=== PATIENT | female | born 1950 | race Caucasian/White ===

== ENCOUNTER 2019-10-16 17:56 | Emergency (ER) | payer MEDICARE, OTHER ==
[~2019-10-16] VITALS: Ht 170.2 cm; Wt 97.7 kg
[~2019-10-16 17:56] MED LIST: ATEN-169 PO; ATOR20TA66 PO; CELE-193 PO; DABI150C PO; DARI15TA PO; DOCU-28 PO; LACT10SO74 PO; OMEP-84 PO; XAL0.005OS OP
[2019-10-16 19:14] VITALS: BP 112/62
== END 2019-10-16 19:15 | disposition home or self-care (01) ==
LOC: ER 17:57
DX: S93.402A Sprain of unspecified ligament of left ankle, initial encounter (principal); S70.02XA Contusion of left hip, initial encounter; S80.02XA Contusion of left knee, initial encounter; I48.91 Unspecified atrial fibrillation; I25.10 Atherosclerotic heart disease of native coronary artery without angina pectoris; E78.00 Pure hypercholesterolemia, unspecified; I10 Essential (primary) hypertension; K21.9 Gastro-esophageal reflux disease without esophagitis; Z79.01 Long term (current) use of anticoagulants; Z90.49 Acquired absence of other specified parts of digestive tract; Z90.710 Acquired absence of both cervix and uterus; Z88.8 Allergy status to other drugs, medicaments and biological substances; Z88.2 Allergy status to sulfonamides; Z79.899 Other long term (current) drug therapy; W18.09XA Striking against other object with subsequent fall, initial encounter; Y93.01 Activity, walking, marching and hiking; Y92.89 Other specified places as the place of occurrence of the external cause; Y99.9 Unspecified external cause status
CPT/HCPCS: 73502; 73564; 73610; 99284

== ENCOUNTER 2022-10-16 12:54 | Emergency (ER) | payer MEDICARE, OTHER ==
[~2022-10-16] VITALS: Ht 167.6 cm; Wt 100.0 kg
[2022-10-16 13:15] VITALS: BP 121/84
[2022-10-16] MEDS ORDERED: dexamethasone 4mg tablet PO ONE (17:55)
[2022-10-16] MEDS ORDERED: DEXAMETHASONE 6 MG TABLET PO ONE (18:55)
[2022-10-16 19:02] LABS: BASOPHILS % (AUTO) 0.3 % (0-1); EOSINOPHILS # (AUTO) 0.1 X10'3 (0-0.9); EOSINOPHILS % (AUTO) 0.9 % (0-6); HEMATOCRIT 42.8 % (35.0-45.0); HEMOGLOBIN 14.1 g/dl (12.0-16.0); LYMPHOCYTES # (AUTO) 2.3 X10'3 (1.1-4.8); LYMPHOCYTES % (AUTO) 25.8 % (21-51); MEAN CORPUSCULAR HEMOGLOBIN 30.4 PG (27.0-31.0); MEAN CORPUSCULAR HGB CONC 32.9 g/dL (33.0-36.5); MEAN CORPUSCULAR VOLUME 92.3 FL (78-98); MEAN PLATELET VOLUME 7.6 FL (7.4-10.4); MONOCYTES # (AUTO) 0.8 X10'3 (0-0.9); MONOCYTES % (AUTO) 8.4 % (2-12); NEUTROPHILS # (AUTO) 5.9 X10'3 (1.8-7.7); NEUTROPHILS % (AUTO) 64.6 % (42-75); PLATELET COUNT 172 X10'3 (140-440); RED BLOOD COUNT 4.64 X10'6 (4.20-5.60); WHITE BLOOD COUNT 9.1 X10'3 (4.5-11.0)
[2022-10-16 19:08] LABS: ALANINE AMINOTRANSFERASE 16 U/L (12-78); ALBUMIN 3.8 G/DL (3.4-5.0); ALKALINE PHOSPHATASE 133 IU/L (46-116); ANION GAP 8 (8-16); ASPARTATE AMINO TRANSFERASE 17 U/L (10-37); BLOOD UREA NITROGEN 12 MG/DL (7-18); BUN/CREATININE RATIO 18.2 (6.6-38.0); CALCIUM 10.2 MG/DL (8.5-10.1); CHLORIDE 103 MMOL/L (99-107); CREATININE 0.66 MG/DL (0.40-0.90); GLUCOSE 116 MG/DL (70-104); POTASSIUM 4.1 MMOL/L (3.5-5.1); SODIUM 143 MMOL/L (135-145); TOTAL CARBON DIOXIDE 32.2 MMOL/L (24-32); TOTAL PROTEIN 7.7 G/DL (6.4-8.2); eGFR 88 ML/MIN
[2022-10-16 19:51] LABS: CLARITY,URINE CLOUDY (Clear); COLOR,URINE YELLOW (Yellow); GLUCOSE, URINE NEGATIVE (Neg); KETONES,URINE NEGATIVE (Neg); LEUKOCYTE ESTERASE ,URINE TRACE (Neg); NITRITES, URINE POSITIVE (Neg); OCCULT BLOOD,URINE NEGATIVE (Neg); PH,URINE 6.5 (4.8-8.0); PROTEIN,URINE NEGATIVE (Neg)
[2022-10-16 19:54] LABS: UA COLLECTION TYPE CLN CATCH MIDSTREAM
[2022-10-16 20:01] LABS: COARSE GRANULAR CAST 0-3 /LPF (NEGATIVE); SQUAMOUS EPITHELIAL CELL,UR MODERATE /LPF (FEW)
[2022-10-16 20:02] LABS: BACTERIA,URINE 4+ /HPF (Neg); WBC CLUMPS,URINE FEW /HPF (NEGATIVE); WBC,URINE 30-50 /HPF (0-4)
[2022-10-16] MEDS ORDERED: DEXA6TAB PO (21:23)
[2022-10-16] MEDS ORDERED: BUDE180A INH (21:23)
[2022-10-16] MEDS ORDERED: CEPH-585 PO (21:53)
[2022-10-16] MEDS ORDERED: cephalexin 250mg capsule PO ONE (21:55)
== END 2022-10-16 22:08 | disposition home or self-care (01) ==
LOC: ER 12:54
DX: U07.1 COVID-19 (principal); N39.0 Urinary tract infection, site not specified; I25.10 Atherosclerotic heart disease of native coronary artery without angina pectoris; E78.00 Pure hypercholesterolemia, unspecified; I10 Essential (primary) hypertension; K21.9 Gastro-esophageal reflux disease without esophagitis; I48.91 Unspecified atrial fibrillation; Z90.49 Acquired absence of other specified parts of digestive tract; Z90.710 Acquired absence of both cervix and uterus; Z88.2 Allergy status to sulfonamides; Z88.8 Allergy status to other drugs, medicaments and biological substances; Z88.7 Allergy status to serum and vaccine; Z79.899 Other long term (current) drug therapy
CPT/HCPCS: 36415; 71045; 80053; 81001; 85025; 87077; 87088; 87186; 99284

== ENCOUNTER 2022-10-22 13:13 | Emergency (ER) | payer MEDICARE, OTHER ==
[~2022-10-22] VITALS: Ht 167.6 cm; Wt 96.4 kg
[~2022-10-22 13:13] MED LIST changes: +BUDE180A INH; +CEPH-585 PO; +DEXA6TAB PO
[2022-10-22 17:35] VITALS: BP 137/79
[2022-10-22 17:56] LABS: BASOPHILS % (AUTO) 0.3 % (0-1); EOSINOPHILS % (AUTO) 0 % (0-6); HEMATOCRIT 40.5 % (35.0-45.0); HEMOGLOBIN 13.1 g/dl (12.0-16.0); LYMPHOCYTES # (AUTO) 0.9 X10'3 (1.1-4.8); LYMPHOCYTES % (AUTO) 11.9 % (21-51); MEAN CORPUSCULAR HEMOGLOBIN 29.6 PG (27.0-31.0); MEAN CORPUSCULAR HGB CONC 32.4 g/dL (33.0-36.5); MEAN CORPUSCULAR VOLUME 91.3 FL (78-98); MEAN PLATELET VOLUME 7.6 FL (7.4-10.4); MONOCYTES # (AUTO) 0.1 X10'3 (0-0.9); NEUTROPHILS # (AUTO) 6.6 X10'3 (1.8-7.7); NEUTROPHILS % (AUTO) 86.8 % (42-75); PLATELET COUNT 212 X10'3 (140-440); RED BLOOD COUNT 4.44 X10'6 (4.20-5.60); RED CELL DISTRIBUTION WIDTH 14.5 % (11.5-14.5); WHITE BLOOD COUNT 7.7 X10'3 (4.5-11.0)
[2022-10-22 17:59] LABS: D-DIMER < 0.19 MG/L FEU (0-0.50)
[2022-10-22 18:01] LABS: ALANINE AMINOTRANSFERASE 22 U/L (12-78); ALBUMIN 3.3 G/DL (3.4-5.0); ALBUMIN/GLOBULIN RATIO 0.9 (1.1-1.5); ALKALINE PHOSPHATASE 106 IU/L (46-116); ANION GAP 2 (8-16); ASPARTATE AMINO TRANSFERASE 25 U/L (10-37); BILIRUBIN,TOTAL 0.5 MG/DL (0.1-1.0); BLOOD UREA NITROGEN 14 MG/DL (7-18); BUN/CREATININE RATIO 21.5 (6.6-38.0); CALCIUM 9.8 MG/DL (8.5-10.1); CHLORIDE 106 MMOL/L (99-107); CREATININE 0.65 MG/DL (0.40-0.90); GLUCOSE 145 MG/DL (70-104); POTASSIUM 4.1 MMOL/L (3.5-5.1); SODIUM 140 MMOL/L (135-145); TOTAL CARBON DIOXIDE 31.6 MMOL/L (24-32); TOTAL PROTEIN 6.8 G/DL (6.4-8.2); eGFR 89 ML/MIN
--- NOTE | 2022-10-22 18:14 | NUR ---
pt up using the restroom
[2022-10-22] MEDS ORDERED: CHOL-4 PO (18:42)
== END 2022-10-22 18:53 | disposition home or self-care (01) ==
LOC: ER 13:14
DX: U07.1 COVID-19 (principal); I11.9 Hypertensive heart disease without heart failure; E78.00 Pure hypercholesterolemia, unspecified; K21.9 Gastro-esophageal reflux disease without esophagitis; Z88.2 Allergy status to sulfonamides; Z88.8 Allergy status to other drugs, medicaments and biological substances
CPT/HCPCS: 36415; 71045; 80053; 85025; 85379; 93005; 99285

== ENCOUNTER 2023-09-04 10:38 | Emergency (ER) | payer MEDICARE, OTHER ==
[~2023-09-04] VITALS: Ht 167.6 cm; Wt 98.2 kg
[~2023-09-04 10:38] MED LIST changes: +CHOL-4 PO
[2023-09-04 10:40] VITALS: TEMP 97.5
[2023-09-04 12:04] LABS: BASOPHILS % (AUTO) 0.7 % (0-1); EOSINOPHILS % (AUTO) 0.5 % (0-6); HEMATOCRIT 43.1 % (35.0-45.0); HEMOGLOBIN 14.3 g/dl (12.0-16.0); LYMPHOCYTES # (AUTO) 1.7 X10'3 (1.1-4.8); LYMPHOCYTES % (AUTO) 30.8 % (21-51); MEAN CORPUSCULAR HEMOGLOBIN 29.8 PG (27.0-31.0); MEAN CORPUSCULAR HGB CONC 33.2 g/dL (33.0-36.5); MEAN CORPUSCULAR VOLUME 89.8 FL (78-98); MEAN PLATELET VOLUME 7.9 FL (7.4-10.4); MONOCYTES # (AUTO) 0.4 X10'3 (0-0.9); MONOCYTES % (AUTO) 7.5 % (2-12); NEUTROPHILS # (AUTO) 3.4 X10'3 (1.8-7.7); NEUTROPHILS % (AUTO) 60.5 % (42-75); PLATELET COUNT 163 X10'3 (140-440); RED CELL DISTRIBUTION WIDTH 14.5 % (11.5-14.5); WHITE BLOOD COUNT 5.7 X10'3 (4.5-11.0)
[2023-09-04 12:32] LABS: ALANINE AMINOTRANSFERASE 15 U/L (12-78); ALBUMIN 3.6 G/DL (3.4-5.0); ALBUMIN/GLOBULIN RATIO 0.9 (1.1-1.5); ALKALINE PHOSPHATASE 124 IU/L (46-116); ANION GAP 7 (8-16); ASPARTATE AMINO TRANSFERASE 24 U/L (10-37); BILIRUBIN,TOTAL 1.1 MG/DL (0.1-1.0); BLOOD UREA NITROGEN 14 MG/DL (7-18); BUN/CREATININE RATIO 19.7 (10.0-20.0); CALCIUM 9.8 MG/DL (8.5-10.1); CHLORIDE 104 MMOL/L (99-107); CREATININE 0.71 MG/DL (0.40-0.90); GLUCOSE 100 MG/DL (70-104); POTASSIUM 3.5 MMOL/L (3.5-5.1); SODIUM 142 MMOL/L (135-145); TOTAL CARBON DIOXIDE 30.8 MMOL/L (24-32); TOTAL PROTEIN 7.5 G/DL (6.4-8.2); eCRCL 64 ML/MIN; eGFR 80 ML/MIN
[2023-09-04] MEDS ORDERED: iohexol 300mg/ml 100ml inj. ONE (13:31)
[2023-09-04 16:44] VITALS: BP 156/121; PULSE 97; RESP 17; O2SAT 93
== END 2023-09-04 16:52 | disposition home or self-care (01) ==
LOC: ER 10:38
DX: S10.93XA Contusion of unspecified part of neck, initial encounter (principal); S30.1XXA Contusion of abdominal wall, initial encounter; I10 Essential (primary) hypertension; E78.00 Pure hypercholesterolemia, unspecified; K21.9 Gastro-esophageal reflux disease without esophagitis; Z88.4 Allergy status to anesthetic agent; Z88.2 Allergy status to sulfonamides; Z79.899 Other long term (current) drug therapy; Z79.2 Long term (current) use of antibiotics; Z79.1 Long term (current) use of non-steroidal anti-inflammatories (NSAID); Z90.710 Acquired absence of both cervix and uterus; Z98.890 Other specified postprocedural states; W19.XXXA Unspecified fall, initial encounter; Y93.89 Activity, other specified; Y92.89 Other specified places as the place of occurrence of the external cause; Y99.8 Other external cause status
CPT/HCPCS: 36415; 70450; 71260; 72125; 74177; 80053; 85025; 93005; 99285; J3490; Q9967

== ENCOUNTER 2024-03-27 15:32 | Emergency (ER) | payer MEDICARE, OTHER ==
[~2024-03-27] VITALS: Ht 167.6 cm; Wt 99.2 kg
[~2024-03-27 15:32] MED LIST changes: -CEPH-585 PO
[2024-03-27 16:00] LABS: BASOPHILS # (AUTO) 0.1 X10'3 (0-0.2); EOSINOPHILS % (AUTO) 0.5 % (0-6); HEMATOCRIT 41.7 % (35.0-45.0); HEMOGLOBIN 13.7 g/dl (12.0-16.0); LYMPHOCYTES # (AUTO) 1.9 X10'3 (1.1-4.8); LYMPHOCYTES % (AUTO) 29.3 % (21-51); MEAN CORPUSCULAR HEMOGLOBIN 28.9 PG (27.0-31.0); MEAN CORPUSCULAR HGB CONC 32.8 g/dL (33.0-36.5); MEAN CORPUSCULAR VOLUME 88.1 FL (78-98); MEAN PLATELET VOLUME 7.6 FL (7.4-10.4); MONOCYTES # (AUTO) 0.6 X10'3 (0-0.9); MONOCYTES % (AUTO) 8.7 % (2-12); NEUTROPHILS # (AUTO) 3.9 X10'3 (1.8-7.7); NEUTROPHILS % (AUTO) 60.5 % (42-75); PLATELET COUNT 182 X10'3 (140-440); RED BLOOD COUNT 4.74 X10'6 (4.20-5.60); RED CELL DISTRIBUTION WIDTH 15.8 % (11.5-14.5); WHITE BLOOD COUNT 6.5 X10'3 (4.5-11.0)
[2024-03-27 16:24] LABS: ALBUMIN 3.7 G/DL (3.4-5.0); ANION GAP 5 (8-16); BLOOD UREA NITROGEN 15 MG/DL (7-18); BUN/CREATININE RATIO 20.8 (10.0-20.0); C-REACTIVE PROTEIN 0.47 MG/DL (0.0-0.5); CALCIUM 10.6 MG/DL (8.5-10.1); CHLORIDE 104 MMOL/L (99-107); CREATININE 0.72 MG/DL (0.40-0.90); GLUCOSE 113 MG/DL (70-104); POTASSIUM 3.6 MMOL/L (3.5-5.1); PRO BRAIN NATRIURETIC PEPTIDE 510 PG/ML (0-450); SODIUM 142 MMOL/L (135-145); TOTAL CARBON DIOXIDE 33.1 MMOL/L (24-32); eCRCL 63 ML/MIN; eGFR 79 ML/MIN
[2024-03-27] MEDS ORDERED: HYDR-3965 PO (17:38)
[2024-03-27] MEDS: HYDROcodone/acetaminophen 5mg/325mg tablet PO ONE (17:41)
[2024-03-27 18:08] VITALS: BP 164/97; PULSE 84; RESP 18; TEMP 98.1; O2SAT 94
== END 2024-03-27 18:09 | disposition home or self-care (01) ==
LOC: ER 15:33
DX: R51.9 Headache, unspecified (principal); I48.91 Unspecified atrial fibrillation; I25.10 Atherosclerotic heart disease of native coronary artery without angina pectoris; E78.00 Pure hypercholesterolemia, unspecified; I10 Essential (primary) hypertension; K21.9 Gastro-esophageal reflux disease without esophagitis; Z90.49 Acquired absence of other specified parts of digestive tract; Z90.710 Acquired absence of both cervix and uterus; Z88.8 Allergy status to other drugs, medicaments and biological substances; Z88.2 Allergy status to sulfonamides; Z79.899 Other long term (current) drug therapy; Z79.52 Long term (current) use of systemic steroids
CPT/HCPCS: 36415; 70450; 71045; 80048; 83880; 84484; 85025; 85651; 86140; 93005; 99285

== ENCOUNTER 2024-09-20 10:51 | Emergency (ER) | payer MEDICARE, OTHER ==
[~2024-09-20] VITALS: Ht 167.6 cm; Wt 102.1 kg
[~2024-09-20 10:51] MED LIST changes: -ATOR20TA66 PO; -BUDE180A INH; -CELE-193 PO; -CHOL-4 PO; -DARI15TA PO; -DEXA6TAB PO; -DOCU-28 PO; +DULO60CA65 PO; +FERR-106 PO; +LACT10SO7 PO; -LACT10SO74 PO; -OMEP-84 PO; +OMEP20CA16 PO; +PANT40TA54 PO
[2024-09-20 13:28] VITALS: BP 134/83; PULSE 70; RESP 16; TEMP 97.4; O2SAT 97
== END 2024-09-20 13:31 | disposition home or self-care (01) ==
LOC: ER 10:52
DX: S00.83XA Contusion of other part of head, initial encounter (principal); I48.91 Unspecified atrial fibrillation; I25.10 Atherosclerotic heart disease of native coronary artery without angina pectoris; E78.00 Pure hypercholesterolemia, unspecified; I10 Essential (primary) hypertension; K21.9 Gastro-esophageal reflux disease without esophagitis; Z90.710 Acquired absence of both cervix and uterus; Z88.2 Allergy status to sulfonamides; Z90.49 Acquired absence of other specified parts of digestive tract; Z88.8 Allergy status to other drugs, medicaments and biological substances; Z79.01 Long term (current) use of anticoagulants; Z79.899 Other long term (current) drug therapy; Z88.7 Allergy status to serum and vaccine; W18.39XA Other fall on same level, initial encounter; Y93.89 Activity, other specified; Y92.89 Other specified places as the place of occurrence of the external cause; Y99.8 Other external cause status
CPT/HCPCS: 70450; 99284

== ENCOUNTER 2025-01-03 20:50 | Emergency (ER) | payer MEDICARE, OTHER ==
[~2025-01-03] VITALS: Ht 167.6 cm; Wt 103.0 kg
[~2025-01-03 20:50] MED LIST changes: -ATEN-169 PO; +ATOR40TA72 PO; -FERR-106 PO; -LACT10SO7 PO; +METO-411 PO; +NITR0.4T48; -OMEP20CA16 PO; +POTA-366 PO
--- NOTE | 2025-01-03 20:55 | ELECTROCARDIOGRAPH REPORT ---
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 Salas Null Measurements Intervals [place] Rate: 91 P: 0 WA: 0 QRS: 29 QRSD: 76 T: 46 QT: 401 QTc: 494 Interpretive Statements Atrial fibrillation Ventricular premature complex Low voltage, precordial leads Borderline T abnormalities, anterior leads Electronically Signed On 01-04-2025 18:48:[address] Salas Null Please click the below link to view image of tracing.
[2025-01-03] MEDS ORDERED: acetaminophen 325mg tablet PO ONE (21:20)
[2025-01-03] MEDS: acetaminophen 325mg tablet PO ONE ×2 (21:37→21:39)
[2025-01-03 22:25] VITALS: RESP 17
--- NOTE | 2025-01-03 22:38 | Physician Documentation ---
History of Present Illness ~ Chief Complaint: Mechanical Fall Stated Complaint: FALL Time Seen by MD: 22:28 Primary Medical Doctor: None HPI Reviewed discharge summary October 2025 upper GI bleed secondary to gastritis/esophagitis, hiatal hernia chronic HFpEF AFib on pradaxa hypertension hyperlipidemia stable angina COPD no exacerbation felt to have likely upper GI bleed recommended discharge on Protonix b.i.d. 74-year-old female history of chronic heart failure on 2 L HEENT baseline was in the bathroom at a restaurant when she lost her balance and fell again hit her low back on the wall. She is complaining of pain to her lower back. No headache. No loss of consciousness Tetanus within 5 Years?: No Medication Reconciliation Allergies: Coded Allergies: Procaine HCl (Verified Allergy, Severe, FULL BODY RASH, 11/07/24) Sulfa (Sulfonamide Antibiotics) (Verified Allergy, Severe, severe vomiting, 11/07/24) Tetanus & Diphtheria Tox,Adult (Verified Allergy, Intermediate, SWELLING, 11/07/24) Scheduled Atorvastatin Calcium (Atorvastatin Calcium), 1 TAB PO DAILY, (Reported) Dabigatran Etexilate Mesylate (Pradaxa), 1 CAP PO BID, (Reported) Duloxetine HCl (Duloxetine HCl), 1 CAP PO BID, (Reported) Latanoprost (XALATAN ophth drops), 1 DROP OP HS, (Reported) Metoprolol Succinate (Metoprolol Succinate), 1.5 TAB PO DAILY, (Reported) Pantoprazole Sodium (Pantoprazole Sodium), 1 TAB PO BID Potassium Chloride (Potassium Chloride), 1 TAB PO DAILY, (Reported) Scheduled PRN Nitroglycerin (Nitroglycerin), for Per Protocol, (Reported) Past Medical History Past Medical History: Atrial Fibrillation, High Cholesterol, Hypertension, COPD, GERD, GI Bleed, Thyroid (unspecified) Past Surgical History: appendectomy, hysterectomy Patient History: FH: Alzheimers disease FATHER FH: kidney disease MOTHER Alcohol Use: None Drug Use: none Lives with: Spouse Lives In: Home Occupation: retired Review of Systems All Other Systems at this time: Reviewed and Negative Physical Exam Vital Signs: Temperature: 98.1, Heart Rate: 61, Respiratory Rate: 17, BP: 158/104, Pulse Oximetry: 97, Weight: 103.000 Oxygen Flow Rate: 2.0 Physical Exam Nontoxic Morbidly obese Nasal cannula 2 L no distress No C or T-spine tenderness. Midline lumbar tenderness to palpation no deformity 12/28 bilateral hip flexion Head atraumatic Bilateral upper and lower extremities atraumatic Progress Results/Orders Results/Orders Orders - JEAN CLAUDE RESTREPO MD Ct Lumbar Spine (01/03/25 23:00) Ct Head (01/03/25 23:30) Completed Orders - JEAN CLAUDE RESTREPO MD Electrocardiogram (01/03/25 20:51) Acetaminophen 325mg Tablet (Tylenol Tabl (01/03/25 21:35) Acetaminophen 325mg Tablet (Tylenol Tabl (01/03/25 21:35) Morphine Sulfate Ir 15mg Tab (Morphine S (01/03/25 22:50) Ct Lumbar Spine (01/03/25 23:00) Ct Head (01/03/25 23:30) Medications Received in ER Medications (Trade) Dose Ordered Sig/Chaz Route PRN Reason Start Time Stop Time Status Last Admin Dose Admin (Tylenol tablet) 975 mg ONCE ONCE PO 01/03/25 21:35 01/03/25 21:36 DC 01/03/25 21:37 975 MG (morphine sulfate IR 15mg tablet) 15 mg ONCE ONCE PO 01/03/25 22:50 01/03/25 22:52 DC 01/03/25 23:05 15 MG Vital Signs 01/03/25 01/03/25 01/03/25 01/04/25 21:09 22:25 23:06 00:03 Temp 98.1 98.1 Pulse 73 61 74 Resp 16 17 B/P (MAP) 113/70 158/104 (122) 148/82 (104) Pulse Ox 95 97 99 O2 Flow Rate 1.0 2.0 2.0 EKG/XRAY/CT/US/VASC/MRI EKG : Additional Comment EKG independently interpreted by myself time 8:51 p.m. indication fall atrial fibrillation rate 91 normal axis normal intervals no ST or T-wave abnormalities CT : Impression CT head independently interpreted shows no intracranial hemorrhage Medical Decision Making Additional Comment Considered intracranial hemorrhage, fracture, contusion Departure Disposition: HOME / SELF CARE / HOMELESS Impression: Primary Impression: Back pain Qualified Codes: M54.50 - Low back pain, unspecified Referrals: NO PRIMARY CARE PROVIDER (PCP) Signature Scribe Signature: na Attestation: JEAN CLAUDE Bynum MD January 03, 2025 22:38
[2025-01-03] MEDS: morphine sulfate IR 15MG tablet PO ONE (23:05)
[2025-01-04 00:03] VITALS: BP 148/82; PULSE 74; O2SAT 99
--- NOTE | 2025-01-04 00:32 | RADIOLOGY REPORT ---
Clinical History fall on AC Comparison CT HEAD on 03/27/2024, 200 images. Technique: Noncontrast CT volume data aquisition of the head viewed in axial, coronal and sagittal pl anes. All CT scans at this medical facility are performed using dose modulation techniques as appropriate t o a performed exam including the following: Automated exposure control was utilized; adjustment of th e mA and/or kV according to patient size; and use of iterative reconstruction technique. All CT studies are reported to the Dose Index Registry of the [employer]. Without Contrast Radiation Dose: CTDI (mGy): 55.04; DLP (mGy-cm): 1038.52 CHELSEA PETERSEN, [id number] FINDINGS: There is mild cortical and central atrophy with minimal probable chronic ischemic change in periventr icular white matter. Ventricles are of normal shape and position. There are no intra-axial or extra-axial collections of blood or fluid. There is no mass, mass effect or shift of midline structures. There is no CT eviden ce for acute ischemic infarct. MRI is more sensitive for this diagnosis. Posterior fossa structures are unremarkable. Sella and parasellar regions are unremarkable. Basal c isterns are patent. Orbits and orbital contents are unremarkable, paranasal sinuses and mastoid air cells clear, osseous structures intact. IMPRESSION: 1. Mild cortical and central atrophy, minimal probable chronic ischemic change in white matter. 2. No evidence of acute intracranial pathology identified on noncontrast CT. 3. No evidence of intracranial hemorrhage, no evidence of skull fracture. This report was electronically signed by Cas Sanchez MD on 01/04/2025 12:28:28 AM.
--- NOTE | 2025-01-04 01:56 | RADIOLOGY REPORT ---
Clinical History lumbar spine injury Comparison XRAY LUMBAR SPINE on 07/04/2009, 2 images. Technique: axial images were acquired through the lumbar spine. Data was reconstructed in sagittal a nd coronal planes All CT scans at this medical facility are performed using dose modulation techniques as appropriate t o a performed exam including the following: Automated exposure control was utilized; adjustment of th e mA and/or kV according to patient size; and use of iterative reconstruction technique. All CT studies are reported to the Dose Index Registry of the [employer]. Without Contrast Radiation Dose: CTDI (mGy): 34.79; DLP (mGy-cm): 1170.02 CHELSEA PETERSEN, [id number] findings: The lumbar vertebral bodies in anatomic height. There is no evidence of an acute compression fractur e. The disc spaces are relatively well-preserved. The spinous processes and transverse processes are intact. L1-L2: No significant disc herniation or canal stenosis L2-L3: No significant disc herniation or canal stenosis L3-L4: 2 mm posterior disc bulge. Facet joint and ligamentum flavum hypertrophy. Mild canal stenosi s residual AP canal diameter of 8 mm. L4-L5: 3 mm posterior disc bulge. Facet joint and ligamentum flavum appear to be resulting in canal stenosis residual AP canal diameter of 8 mm. L5-S1: 3 mm posterior disc bulge. No canal or foraminal stenosis. Impression: 1. No evidence of an acute fracture or dislocation of the lumbar spine 2. Moderate degenerative changes with canal stenosis at the L4-L5 and L3-L4 levels. Recommend MRI c orrelation. This report was electronically signed by Kim Robert MD on 01/04/2025 1:53:07 AM.
[2025-01-04] MEDS ORDERED: OXYC-658 PO (03:20)
[2025-01-04 03:28] VITALS: TEMP 98.1
== END 2025-01-04 03:30 | disposition home or self-care (01) ==
LOC: ER 20:51
DX: M54.50 Low back pain, unspecified (principal); E78.00 Pure hypercholesterolemia, unspecified; I11.0 Hypertensive heart disease with heart failure; I50.32 Chronic diastolic (congestive) heart failure; I48.91 Unspecified atrial fibrillation; K21.9 Gastro-esophageal reflux disease without esophagitis; J44.9 Chronic obstructive pulmonary disease, unspecified; Z88.2 Allergy status to sulfonamides; Z88.8 Allergy status to other drugs, medicaments and biological substances; Z90.49 Acquired absence of other specified parts of digestive tract; Z90.710 Acquired absence of both cervix and uterus
CPT/HCPCS: 70450; 72131; 93005; 99284

== ENCOUNTER 2025-03-30 12:35 | Day surgery (SDC) | payer MEDICARE, OTHER ==
[~2025-03-30] VITALS: Ht 167.6 cm; Wt 99.1 kg
[~2025-03-30 12:35] MED LIST changes: +ACET-1025 PO; +DOCU100C41 PO; -NITR0.4T48; -XAL0.005OS OP
[2025-03-30] MEDS ORDERED: PANT-47 PO (13:01)
[2025-03-30] MEDS ORDERED: normal saline 1000ml 1,000 ML IV SCH (13:10)
[2025-03-30] MEDS ORDERED: fentaNYL/PF 50MCG/1 ML 2ML syringe IV ONE (13:10)
[2025-03-30] MEDS ORDERED: MIDAZolam 1mg/ml 10ml vial IV ONE (13:10)
[2025-03-30 13:15] VITALS: BP 146/83; PULSE 76; RESP 10; TEMP 98.2; O2SAT 92
[2025-03-30 13:26] LABS: MEAN PLATELET VOLUME 7.5 FL (7.4-10.4); RED CELL DISTRIBUTION WIDTH 20.8 % (11.5-14.5)
[2025-03-30 13:31] LABS: CREATININE 0.56 MG/DL (0.40-0.90); TOTAL CARBON DIOXIDE 32.9 MMOL/L (24-32); eCRCL 80 ML/MIN; eGFR > 90 ML/MIN
[2025-03-30 13:35] LABS: APTT 32 SECONDS (22-32); INR 1.2 INR
[2025-03-30] MEDS ORDERED: fentaNYL/PF 50MCG/1 ML 2ML syringe ONE (13:38)
[2025-03-30] MEDS ORDERED: midazolam 1 mg/ML 2ml injection ONE (13:38)
[2025-03-30 14:23] VITALS: BP 138/95; PULSE 83; RESP 12; O2SAT 92
[2025-03-30 14:30] VITALS: BP 156/85; PULSE 77; RESP 15; O2SAT 98
[2025-03-30 14:45] VITALS: BP 156/103; PULSE 86; RESP 15; O2SAT 100
[2025-03-30] MEDS ORDERED: CLOP75TA34 PO (14:46)
[2025-03-30] MEDS ORDERED: ASPI-611 PO (14:46)
[2025-03-30 15:00] VITALS: BP 148/86; PULSE 84; RESP 13; O2SAT 98
[2025-03-30 15:15] VITALS: BP 124/69; PULSE 86; RESP 18; O2SAT 94
--- NOTE | 2025-03-31 06:16 | CARDIOLOGY REPORT ---
APPROVED REPORT EXAM: Focused, limited transesophageal echocardiogram with color flow Doppler. Patient Location: CARDIAC CHEMICAL [facility]INEER[facility] INTERN Blood Pressure: 156/82 mmHg Heart Rate: 94-103 bpm Rhythm: ATRIAL FIBRILLATION Indications POST WATCHMAN FLX AMINAH CLOSURE DEVICE IMPLANTATION FOLLOW UP EVALUATE DEVICE FOR THROMBUS, POSITION, AND SEAL 35 mm WATCHMAN FLX AMINAH CLOSURE DEVICE Revenue Agent: Ananya Null MD / ELLE PROBE PASSED BY: Gino Null MD Previous echo: 02/08/25 [facility] (EF 65%, no flow around device, trivial pericardial effusion) LEFT VENTRICLE Normal LV size and wall thickness. Overall systolic function is normal. LVEF is 55-60%. ATRIA LA is severely dilated. Intact interatrial septum with no obvious residual shunt s/p transseptal punc ture. Left upper pulmonary vein identified. Successfully occluded left atrial appendage with well vis ualized Watchman device well positioned without thrombus. Minimal residual flow detected around devic e in 45degr view. Channel measures 0.2 cm across. GREAT VESSELS Aortic arch and descending aorta appear normal in size. Minimal atherosclerotic plaque is present thr oughout the aorta. PERICARDIUM Trivial pericardial effusion, unchanged from 02/11/25. CONCLUSION Normal LV size and wall thickness. Overall systolic function is normal. LVEF is 55-60%. LA is severel y dilated. Intact interatrial septum with no obvious residual shunt s/p transseptal puncture. Left up per pulmonary vein identified. Successfully occluded left atrial appendage with well visualized Watch man device well positioned without thrombus. Minimal residual flow detected around device in 45degr v iew. Channel measures 0.2 cm across. Trivial pericardial effusion, unchanged from 02/11/25. Conclusion Normal LV size and wall thickness. Overall systolic function is normal. LVEF is 55-60%. LA is severely dilated. Intact interatrial septum with no obvious residual shunt s/p transseptal pun cture. Left upper pulmonary vein identified. Successfully occluded left atrial appendage with well visualized Watchman device well positioned without thrombus. Minimal residual flow detected around d evice in 45degr view. Channel measures 0.2 cm across. Trivial pericardial effusion, unchanged from 02/11/25.
[2025-03-31] MEDS ORDERED: ASPI81TA52 PO (11:47)
[2025-03-31] MEDS ORDERED: CLOP75TA34 PO (11:47)
[2025-04-17] MEDS ORDERED: ASPI-1265 PO (12:05)
[2025-04-17] MEDS ORDERED: CLOP75TA34 PO (12:05)
[2025-04-18] MEDS ORDERED: FER325T PO (12:49)
[2025-04-18] MEDS ORDERED: ALBU18HF2 INH (12:49)
[2025-04-18] MEDS ORDERED: ASCO-10 PO (12:51)
[2025-04-18] MEDS ORDERED: DOCU100C40 PO (12:51)
[2025-04-18] MEDS ORDERED: METO50TA16 PO (12:58)
[2025-04-18] MEDS ORDERED: AMIO200T76 PO (12:58)
[2025-04-18] MEDS ORDERED: CARSR60C PO (12:58)
== END 2025-03-30 15:35 | disposition home or self-care (01) ==
LOC: SSTAY O 12:35
PROVIDERS: ATTEND Student in an Organized Health Care Education/Training Program
DX: I48.91 Unspecified atrial fibrillation (principal); I70.0 Atherosclerosis of aorta; I31.39 Other pericardial effusion (noninflammatory); I11.0 Hypertensive heart disease with heart failure; I50.9 Heart failure, unspecified; E78.00 Pure hypercholesterolemia, unspecified; J44.9 Chronic obstructive pulmonary disease, unspecified; Z95.818 Presence of other cardiac implants and grafts; Z88.7 Allergy status to serum and vaccine; Z88.8 Allergy status to other drugs, medicaments and biological substances
CPT/HCPCS: 36415; 80048; 85025; 85610; 85730; 93312; 93325; A4615; J2250; J3010; J7030; 99152

== ENCOUNTER 2025-07-12 15:15 | Emergency (ER) | payer MEDICARE, OTHER ==
[~2025-07-12] VITALS: Ht 167.6 cm; Wt 89.9 kg
[~2025-07-12 15:15] MED LIST changes: +ALBU18HF2 INH; +AMIO200T76 PO; +ASCO-10 PO; -DABI150C PO; +DOCU100C40 PO; -DOCU100C41 PO; -DULO60CA65 PO; +FER325T PO; -METO-411 PO; +PANT-47 PO; -PANT40TA54 PO; -POTA-366 PO
[2025-07-12 15:16] VITALS: TEMP 98.2
[2025-07-12 17:12] VITALS: BP 168/79; PULSE 82; RESP 18; O2SAT 97
--- NOTE | 2025-07-12 17:52 | Physician Documentation ---
History of Present Illness ~ Chief Complaint: Leg Pain Stated Complaint: LUMP ON L THIGH Time Seen by MD: 16:15 HPI A 75-year-old female presents to the ED with a complaint of acute onset left lower extremity thigh pain and swelling she states one week ago she had an ablation done for varicose veins. She states over the last two days she has developed point tenderness in the medial aspect of her left thigh with swelling and redness Denies any shortness of breath or chest pain however she does have a history of atrial fibrillation but is no longer on Plavix Day of Onset: Jul 12, 2025 Tetanus witin 5 years: No Medication Reconciliation Allergies: Coded Allergies: Procaine HCl (Verified Allergy, Severe, FULL BODY RASH, 11/07/24) Sulfa (Sulfonamide Antibiotics) (Verified Allergy, Severe, severe vomiting, 11/07/24) Tetanus & Diphtheria Tox,Adult (Verified Allergy, Intermediate, SWELLING, 11/07/24) Scheduled Amiodarone Hcl (Cordarone), 200 MG PO BID Apixaban (Eliquis), 1 TAB PO Q12H Ascorbic Acid (Vitamin C), 1 TAB PO DAILY Atorvastatin Calcium (Atorvastatin Calcium), 1 TAB PO DAILY, (Reported) Docusate Sodium (Docusate Sodium), 1 CAP PO Q12H Ferrous Sulfate (Ferrous Sulfate), 1 TAB PO DAILY Pantoprazole Sodium (PROTONIX tablet), 1 TAB PO DAILY, (Reported) Scheduled PRN Acetaminophen (Tylenol Extra Strength), 1 TAB PO TID PRN PRN for pain or fever, (Reported) Albuterol Sulfate (Ventolin Hfa), 2 PUFFS INH Q4HPRN PRN for wheezing Past Medical History Past Medical History: Atrial Fibrillation, High Cholesterol, Hypertension, COPD, GERD, GI Bleed, Thyroid (unspecified) Past Surgical History: appendectomy, hysterectomy Patient History: FH: Alzheimers disease FATHER FH: breast cancer (sisters and daughter) FH: kidney disease MOTHER FH: lung cancer (sister) FHx: kidney disease (mother) Alcohol Use: None Lives with: Spouse Lives In: Home Occupation: retired Review of Systems All Other Systems at this time: Reviewed and Negative ROS As stated above in the HPI, otherwise all systems are reviewed and negative. Physical Exam Vital Signs: Temperature: 98.2, Source: Oral, Heart Rate: 82, Respiratory Rate: 18, BP: 168/79, Pulse Oximetry: 97, Weight: 89.900 Oxygen Flow Rate: 0 Physical Exam General: Alert, no apparent distress. Respiratory: Lungs clear, no respiratory distress. Cardiovascular: Regular rate and rhythm, no murmurs. Gastrointestinal: Soft, nontender, nondistended. Bowels sounds present. Extremities: Normal range of motion, no deformity. 3 cm tender rased waqar with surrouonding erythema located on the medial aspect of the left upper thigh. Neurologic: Oriented x4. Psychiatric: Normal mood and affect. Skin: Normal color, warm and dry. No edema, no ecchymosis. Progress Results/Orders Results/Orders Orders - HOSSEIN BURRIS MARINE DESIGNER Vl Venous (07/12/25 ) Completed Orders - HOSSEIN BURRIS NP Vl Venous (07/12/25 ) Stat Ekg (07/12/25 17:20) Vital Signs 07/12/25 07/12/25 07/12/25 15:16 17:10 17:12 Temp 98.2 Pulse 106 82 Resp 16 18 B/P (MAP) 139/65 168/79 (108) Pulse Ox 94 97 O2 Flow Rate 0 0 Medical Decision Making Additional information obtaine: old records Findings This postoperative 75-year-old female was initially concerned about the pain and swelling in her your left thigh. Initially I suspected this is simply atypical side effect or postoperative effect from varicose vein ablation. However based on her atrial fibrillation history I opted for ultrasound of her leg which indicated a thrombophlebitis based her history, I feel it is prudent to at least start her on Eliquis and allow for Dr. Devlin to further treat this patient. General Diff Dx:Considerations: Include: Abrasion, Contusion, Fracture, Hematoma, Laceration, Malunion, Neurovascular injury, Open fracture, Sprain, Ulcer, Other Knee Diff Dx:Considerations: Include: Abrasion, Arthritis, Contusion, DJD, Fracture-femur, Fracture-fibula, Fracture-patella, Fracture-tibia, Gout, Hematoma, Laceration, Meniscus injury, Neurovascular injury, Open fracture, Rheumatoid arthritis, Septic, Sprain, Sprain-MCL, Sprain-LCL, Sprain-ACL, Sprain-PCL, Other Ankle Diff Dx:Considerations: Include: Abrasion, Arthritis, Contusion, DJD, Fracture-metatarsal, Fracture-fibula, Fracture-tarsal, Fracture-tibia, Gout, Hematoma, Laceration, Malunion, Neurovascular injury, Nonunion, Open fracture, Osteomyelitis, Rheumatoid arthritis, Sprain, Septic, Ulcer, Other Foot Diff Dx:Considerations: Unlikely: Abrasion, Arthritis, Cellulitis, Contusion, Dislocation, DJD, Fracture-metatarsal, Fracture-phalynx, Fracture- tarsal, Gout, Hematoma, Ingrown toenail, Laceration, Malunion, Neurovascular injury, Open fracture, Paronychia, Puncture, Rheumatoid, Sprain, Septic, Subungual hematoma, Ulcer, Other Toe Diff Dx:Considerations: Unlikely: Abrasion, Cellulitis, Contusion, Dislocation, Felon, Fracture, Hematoma, Laceration, Neurovascular injury, Open fracture, Paronychia, Subungual hematoma, Other Departure Disposition: 01 HOME / SELF CARE / HOMELESS Impression: Primary Impression: Thrombophlebitis/phlebitis, superficial Condition: Stable Discharge Instructions: RICE Therapy for Routine Care of Injuries, [id number] Additional Instructions: Utilize warm compresses on the affected area, did send prescription of blood thinners to your pharmacy. Follow up with Dr. Devlin for further evaluation of your leg Referrals: NO PRIMARY CARE PROVIDER (PCP) Prescriptions Apixaban (ELIQUIS) 5 Mg Tablet 1 TAB PO Q12H for 30 Days, #60 TAB 0 Refills Prov: HOSSEIN BURRIS NP 07/12/25 Education Educated: Patient Educated regarding: diagnosis Signature Scribe Signature: t Attestation: Scribed for Hossein Burris Ink Printer by Hossein Cruz NP . 07/12/25 17:51 HOSSEIN BURRIS NP Jul 12, 2025 17:51
--- NOTE | 2025-07-12 18:06 | ELECTROCARDIOGRAPH REPORT ---
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 SLOANE Topete Measurements Intervals [place] Rate: 70 P: 0 ME: 0 QRS: 88 QRSD: 95 T: 65 QT: 426 QTc: 460 Interpretive Statements Atrial fibrillation Borderline right axis deviation Borderline T abnormalities, anterior leads Electronically Signed On 07-13-2025 17:27:[address] SLOANE Topete Please click the below link to view image of tracing.
[2025-07-12] MEDS ORDERED: APIX5TAB3 PO (18:12)
--- NOTE | 2025-07-12 18:40 | VASCULAR REPORT ---
Bilateral lower extremity venous duplex Clinical History: Pain and palpable cord. Comparison: VASC VL VENOUS on DOS: 11/08/24 Technique: Duplex Doppler evaluation of the deep venous systems of both lower extremities from the common femoral veins to the popliteal veins including color Doppler and spectral/pulsed waveform analysis was performed. Findings: RIGHT SIDE: Common femoral, femoral, popliteal, and below knee veins are patent and compressible with no thrombus. Superficial veins appear unremarkable. LEFT SIDE: Superficial thrombus within a varicose vein extending from the mid thigh to the proximal calf. Otherwise the superficial veins, common femoral, femoral, popliteal, and below knee veins are patent and compressible. Impression: Superficial thrombus within a left varicose vein extending from the mid thigh to the proximal calf. No thrombus is seen within the deep venous system on either side.
== END 2025-07-12 19:00 | disposition home or self-care (01) ==
LOC: ER 15:16
DX: I80.02 Phlebitis and thrombophlebitis of superficial vessels of left lower extremity (principal); I48.91 Unspecified atrial fibrillation; I10 Essential (primary) hypertension; K21.9 Gastro-esophageal reflux disease without esophagitis; E78.00 Pure hypercholesterolemia, unspecified; J44.9 Chronic obstructive pulmonary disease, unspecified; Z88.2 Allergy status to sulfonamides; Z88.8 Allergy status to other drugs, medicaments and biological substances; Z90.49 Acquired absence of other specified parts of digestive tract; Z90.710 Acquired absence of both cervix and uterus; Z79.899 Other long term (current) drug therapy
CPT/HCPCS: 93005; 93971; 99284